=== PATIENT | male | born 1975 | race Caucasian/White ===

== ENCOUNTER 2022-10-25 13:48 | Emergency (ER) | payer BC ==
[2022-10-25 14:03] VITALS: BP 122/81
[2022-10-25] MEDS ORDERED: IBUPROFEN 800 MG TABLET PO STA (14:38)
--- NOTE | 2022-10-25 14:38 | ED Physician Documentation ---
History of Present Illness - Stated complaint Stated Complaint: LT FT INJURY AND PX - Chief complaint Chief Complaint: Trauma Ext - History obtained from History obtained from: Patient, Family - History of Present Illness Timing: Yesterday Pain level max: 7 Pain level now: 2 - Additonal information Additional information: 46-year-old male states that he jumped about 4 feet off of a small wall onto concrete and injured his left heel. He states he is unable to bear weight today. Worse with walking, better with rest. Review of Systems Neurologic: denies: Headache PD PAST MEDICAL HISTORY - Past Medical History Past Medical History: No - Past Surgical History Past Surgical History: No - Allergies Allergies/Adverse Reactions: Allergies Allergy/AdvReac Type Severity Reaction Status Date / Time No Known Drug Allergies Allergy Verified 10/25/22 14:03 - Living Situation Living Situation: reports: With family Living Arrangement: reports: At home - Social History Does the pt have substance abuse?: No PD ED PE NORMAL - Vitals Vital signs reviewed: Yes - General General: Alert and oriented X 3, No acute distress - HEENT HEENT: Moist mucous membranes - Derm Derm: Warm and dry - Extremities Extremities: Other (L foot - TTP over the medial and lateral calcaneous. no swelling. NVI. ) - Neuro Neuro: Alert and oriented X 3 Results - Vitals Vitals: Vital Signs - 24 hr 10/25/22 14:01 Temperature 36.9 C Heart Rate 82 Respiratory 16 Rate Blood Pressure 122/81 H O2 Saturation 98 Oxygen O2 Source Room air - Rads (name of study) lower ext CT Relevant Findings:: Final report received, See rad report L foot xray Relevant Findings:: Final report received, See rad report Procedures - Splint (location) - Minor LLE Splint applied by: Physician, Tech Type of splint: Fiberglass, Short leg, Posterior Other: Patient tolerated well, No complications, Neurovascular intact, Crutches provided PD Medical Decision Making - ED course Complexity details: reviewed results, re-evaluated patient, considered differential, d/w patient, d/w protection consultant (Dr. Juarez orthopedics) ED course: 46-year-old male with left calcaneus pain. No acute findings on x-ray, due to the patient's inability to bear any weight, a CT was performed, this does show a nondisplaced calcaneus fracture. Placed in a short leg posterior splint. Patient declines pain medication here or for home. Given crutches. Patient will be nonweightbearing. He will follow-up with his orthopedist of choice. Patient counseled regarding signs and symptoms for which I believe and urgent re-evaluation would be necessary. Patient with good understanding of and agreement to plan and is comfortable going home at this time This document was made in part using voice recognition software. While efforts are made to proofread this document, sound alike and grammatical errors may occur. Departure - Departure Disposition: 01 Home, Self Care Clinical Impression: Calcaneus fracture, left Qualifiers: Encounter type: initial encounter Calcaneus location: unspecified portion of calcaneus Fracture type: closed Fracture alignment: nondisplaced Qualified Code(s): S92.002A - Unspecified fracture of left calcaneus, initial encounter for closed fracture Condition: Good Instructions: ED Fx Foot Follow-Up: CARMELO HUBBARD [Primary Care Provider] - Kirk Juarez MD [Provider Admit Priv/Credential] - Comments: Please follow-up with the orthopedist of your choice for further care. You are to be nonweightbearing until released by orthopedics. Please take a copy of the CT scan with you to your appointment. Please call for an appointment in about 1 week. EXAM: [id number] CT/LELWO ([id number]) PROCEDURE: LOWER EXTREMITY WO - LT INDICATIONS: calcaneus pain, trauma TECHNIQUE: Noncontrast 3-mm axial sections acquired from the distal tibial shaft to the talar dome, with coronal and sagittal reformats. For radiation dose reduction, the following was used: automated exposure control, adjustment of mA and/or kV according to patient size. COMPARISON: None. FINDINGS: Image quality: Excellent. Bones: Normal bone mineralization. There is an incomplete nondisplaced fracture involving the inferior cortex of the proximal calcaneus. Otherwise, joint spaces and remainder the osseous structures are unremarkable. Ankle mortise is maintained associated soft tissue edema present. No radiopaque foreign bodies. Impression: Incomplete fracture involving the inferior calcaneal cortex without displacement Discharge Date/Time: 10/25/22 17:23
--- NOTE | 2022-10-25 14:59 | XRAY Report ---
PROCEDURE: Foot 3 View LT INDICATIONS: Trauma TECHNIQUE: 3 views of the foot were acquired. COMPARISON: None. FINDINGS: Bones: No fractures or dislocations. No suspicious bony lesions. Soft tissues: No suspicious soft tissue calcifications or masses. IMPRESSION: Unremarkable left foot radiographs Reviewed by: Ronan Rodriges MD on 10/25/2022 1:58 PM AKDT Approved by: Ronan Rodriges MD on 10/25/2022 1:58 PM AKDT Station ID: [id number]
--- NOTE | 2022-10-25 16:15 | CT Report ---
PROCEDURE: LOWER EXTREMITY WO - LT INDICATIONS: calcaneus pain, trauma TECHNIQUE: Noncontrast 3-mm axial sections acquired from the distal tibial shaft to the talar dome, with coronal and sagittal reformats. For radiation dose reduction, the following was used: automated exposure c ontrol, adjustment of mA and/or kV according to patient size. COMPARISON: None. FINDINGS: Image quality: Excellent. Bones: Normal bone mineralization. There is an incomplete nondisplaced fracture involving the inferi or cortex of the proximal calcaneus. Otherwise, joint spaces and remainder the osseous structures are unremarkable. Ankle mortise is maintained associated soft tissue edema present. No radiopaque foreig n bodies. Impression: Incomplete fracture involving the inferior calcaneal cortex without displacement Reviewed by: Ronan Rodriges MD on 10/25/2022 3:14 PM AKDT Approved by: Ronan Rodriges MD on 10/25/2022 3:14 PM AKDT Station ID: [id number]
== END 2022-10-25 17:23 | disposition home or self-care (01) ==
LOC: ED 13:48
DX: S92.002A Unspecified fracture of left calcaneus, initial encounter for closed fracture (principal); Y93.39 Activity, other involving climbing, rappelling and jumping off
CPT/HCPCS: 29515; 73630; 73700; 99283; A9270

== ENCOUNTER 2022-11-26 16:20 | Outpatient (CLI) | payer BC ==
--- NOTE | 2022-11-26 11:51 | XRAY Report ---
PROCEDURE: Calcaneus LT INDICATIONS: LEFT CALCANEUS FRACTURE TECHNIQUE: Two views of the calcaneus were acquired. COMPARISON: CT 10/25/2022 FINDINGS: Bones: Small lucency again seen at the plantar aspect of the calcaneus, consistent with the known inc omplete fracture in this location with mild healing changes. Osseous alignment is unchanged. Soft tissues: No suspicious calcifications. Achilles tendon appears normal. IMPRESSION: Mild progressive healing changes involving the incomplete fracture at the plantar aspect of the poste rior calcaneus. Reviewed by: Tj Walter MD on 11/26/2022 11:50 AM PDT Approved by: Tj Walter MD on 11/26/2022 11:50 AM PDT Station ID: [id number]
== END 2022-11-26 16:21 | disposition home or self-care (01) ==
LOC: DI.WOS 16:20
PROVIDERS: ATTEND Orthopaedic Surgery
DX: M84.375D Stress fracture, left foot, subsequent encounter for fracture with routine healing (principal)